=== PATIENT | female | born 1995 | race Caucasian/White ===

== ENCOUNTER 2024-03-19 00:44 | Outpatient (CLI) | payer BC, SELFPAY ==
[2024-03-19 01:03] VITALS: BP 134/85; PULSE 96; RESP 17; TEMP 36.6; O2SAT 100; BMI 39.6
[2024-03-19 01:17] VITALS: BMI 39.6
[2024-03-19 01:22] LABS: Microscopic, Urine URINE MICROSCOPIC (MICROSCOPIC)
[2024-03-19 01:24] LABS: Appearance,Urine CLEAR (Clear); Bilirubin,Urine Negative (Negative); Blood, Urine Negative (Negative); Color,Urine YELLOW (Yellow); Glucose,Urine (UA) Negative (Negative); Ketones,Urine Negative (Negative); Leukocyte Esterase,Urine Negative (Negative); Nitrate,Urine Negative (Negative); Protein,Urine Negative (Negative); Specific Gravity, Urine >= 1.030 (1.005-1.030); Urobilinogen,Urine 0.2 EU/dl (0.2)
[2024-03-19 01:51] LABS: Bacteria,Urine 2+ /lpf; Mucus,Urine 1+ /lpf
[2024-03-19] MEDS: CYCLOBENZAPRINE 10MG TABLET 5 MG PO (02:01)
[2024-03-19 02:03] LABS: Amphetamine/Metha Screen,Urine Negative ng/ml (<1000); Barbiturates Screen,Urine Negative ng/ml (<200)
[2024-03-19 02:04] LABS: Benzodiazepines Screen,Urine Negative ng/ml (<200)
[2024-03-19 02:06] LABS: Cannabinoid Screen,Urine Negative ng/ml (<50); Methadone Screen,Urine Negative ng/ml (<300)
[2024-03-19 02:07] LABS: Cocaine Screen,Urine Negative ng/ml (<300)
[2024-03-19 02:08] LABS: Opiate Screen,Urine Negative ng/ml (<300); Phencyclidine Screen,Urine Negative ng/ml (<25)
== END 2024-03-19 02:45 | disposition home or self-care (01) ==
LOC: OBOUT 00:49 → OB 00:49
PROVIDERS: Visit Provider Obstetrics & Gynecology
DX: O26.893 Other specified pregnancy related conditions, third trimester (principal); M54.50 Low back pain, unspecified; Z3A.28 28 weeks gestation of pregnancy; O23.43 Unspecified infection of urinary tract in pregnancy, third trimester; N39.0 Urinary tract infection, site not specified; B96.20 Unspecified Escherichia coli [E. coli] as the cause of diseases classified elsewhere
CPT/HCPCS: 80307; 81001; 87086; 87088; 87186; G0463

== ENCOUNTER 2024-11-30 07:18 | Emergency (ER) | payer MEDICAID, SELFPAY ==
--- OUTSIDE RECORDS SUMMARY | 2024-11-30 07:31 | XMS_ITS | Clinical Summary ---
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 Active promethazine (Phenergan) 12.5 MG tabletIndication s:Nausea and vomiting in Take 1 tablet (12.5 mg) by mouth every 4 (four) hours. 180 tablet 1 4 Active Additional Information Patient not taking.Reported on 07/08/2024 polyethylene glycol (Miralax) 17 GM/SCOOP powder Take 17 g by mouth 1 (one) time each day. 578 g 2 4 Active Additional Information Patient not taking.Reported on 07/08/2024 famotidine (Pepcid) 20 MG tabletIndication s:Gastroesophage al reflux disease without esophagitis Take 1 tablet (20 mg) by mouth 2 (two) times a day. 90 tablet 3 4 Active Additional Information Patient not taking.Reported on 07/08/2024 pantoprazole (Protonix) 40 MG EC tabletIndication s:35 weeks gestation of Take 1 tablet (40 mg) by mouth 1 (one) time each day before breakfast. Do not crush, chew, or split. 30 tablet 11 5 05/05/19 26 Active Additional Information Patient not taking.Reported on 07/08/2024 Active Problems Problem Noted Date Diagnosed Date Encounter for routine follow-up 06/25 Resolved Problems Problem Noted Date Diagnosed Date Resolved Date 37 weeks gestation of 05/13/2024 06/25/2024 35 weeks gestation of 05/05/2024 05/13/2024 Uterine size-date discrepanc y in third trimester 03/17/2024 05/20/2024 33 weeks gestation of 02/16/2024 05/05/2024 Gastroesophageal reflux dise ase without esophagitis 01/19/2024 02/16/2024 Urinary symptom or sign 12/12/2023 09/2 05/2023 20 weeks gestation of 11/24/2023 02/16/2024 state, incidental 10/03/2023 0 11/24/2023 Assessment & Plan (10/03/2023 5:07 PM EDT): - TVUS: intrauterine gestational sac measuring 5w2d with no pole or yolk sac identified, normal adnexa, no free fluid - LMP was before IUD was removed. Likely conception after IUD removed and US too early to see pole - continue vitmain - RTC 2 weeks for repeat US Immunizations Immunization Administration Dates Next Due Rho (D) Immune Globulin 03/17/2024 Tdap 03/17/2024 Family History Medical History Relation Name Comments Depression Mother Felicita Mock Diabetes Mother Felicita Mock Relation Name Status Comments Mother Felicita Mock Social History Tobacco Use Types Packs/Day Years Used Date Smoking Tobacco: Never Smokeless Tobacco: Never Tobacco Cessation:Counseling Given: Not Answered Alcohol Use Standard Drinks/Week Comments Never 0 (1 standard drink = 0.6 oz pur e alcohol) PHQ-2 Answer Date Recorded Patient Health Questionnaire-2 Score 0 07/08/2024 [place] Depression Scale Answer Date Recorded [place] Depression Scale Total 12 07/08/2024 The thought of harming myself has occurred to me . Never 07/08/2024 PHQ-9 Answer Date Recorded Patient Health Questionnaire-9 Score 0 06/25/2024 Comments No Sex and Gender Information Value Date Recorded Sex Assigned at Female 03/16/2024 12:07 PM EST Legal Sex Female 6:29 PM EDT Gender Identity Female 03/16/2024 12:06 PM EST Sexual Orientation Straight 03/16/2024 12 :06 PM EST Last Filed Vital Signs Vital Sign Reading Time Taken Comments Blood Pressure 122/84 07/08/2024 12:04 PM EDT Pulse 68 07/08/2024 12:04 PM EDT Temperature 36.8 C (98.2 F) 07/08/2024 12:04 PM EDT Respiratory Rate 14 07/08/2024 12:04 PM EDT Oxygen Saturation 97% 07/08/2024 12:04 PM EDT Inhaled Oxygen Concentration - - Weight 117 kg (258 lb 13.1 oz) 07/08/2024 12:04 PM EDT Height 170.2 cm (5' 7 ) 07/08/2024 12:04 PM EDT Body Mass Index 40.54 07/08/2024 12:04 PM EDT Plan of Treatment Health Maintenance Due Date Last Done Comments [facility]-/Child/Adol SDOH Screenings 1996 [facility]-Hepatitis B Vaccines (2 of 3 - 3-dose series) 06/16/1997 05/19/1997 [facility]-IPV Vaccines (3 of 3 - 4-dose series) 2000 08/23/1997, 1996 [facility]-Varicella Vaccines (2 of 2 - 2-dose childhood series) 2000 08/23/1997 [facility]- SDOH Screenings 2014 [facility]-Adult SDOH Screenings 2014 [facility]-Pap Smear 2017 HPV Vaccines (1 - 3-dose SCDM series) 08/16/2023 [id number] Vaccine ( season) 2023 [facility]-Influenza Vaccine (#1) 2024 06/11/2018 [facility]-Depression Screening 07/08/2025 025, 07/08/2024, 06/25/2024 [facility]-DTaP,Tdap,and Td Vaccines (5 - Td or Tdap) 03/17/2034 03/17/2024, 11/21/1997, 02/17/1997, Additional history exists [facility]-Zoster Vaccines (1 of 2) 2046 08/23/1997 [facility]-HIB Vaccines Completed 11/21/1997, , 1996 [facility]-Hepatitis A Vaccines Aged Out 05/06/2018 No longer eligible based on patient's age to complete this topic [facility]-HIV Screening Completed 10/17/2023 [facility]-Hepatitis C Screening Completed 10/17/2023 [facility]-Obesity Intervention Completed 025, 06/25/2024, 05/27/2024, Additional history exists [facility]-Pneumococcal Vaccine: Pediatrics (0 to 5 Years) and At-Risk Patients (6 to 49 Years) Aged Out No longer eligible based on patient's age to complete this topic [facility]-Rotavirus Vaccines Aged Out No lo nger eligible based on patient's age to complete this topic Procedures Procedure Name Priority Date/Time Associated Diagnosis Comments HEPATITIS C ANTIBODY W/REFLEX TO HCV QUANT PCR Routine 10/17/2023 11:13 AM EDT state, incidental HIV 1/2 ANTIBODY/ANTIGEN SCREEN WITH REFLEX TO HIV I/II DIFFERENTIATION Routine 10/17/2023 11:13 AM EDT state, incidental from Last 3 Months or Most Recently Relevant to Health Maintenance Results * HIV 1 & 2 Antibody/Antigen Screen (10/17/2023 11:13 AM EDT) HIV 1 & 2 Antibody/Antigen Screen Non Reactive Non Reactive 10/17/2023 2:16 PM EDT [facility] Comment:Screening for HIV 1 & 2 antibodies, and P24 antigen is NONREACTIVE. No confirmatory testing is required. Blood Venous blood specimen / Unknown Venipuncture / Unknown 10/17/2023 11:13 AM EDT 10/17/2023 1:10 PM EDT us Milagros Whyte MD LAB BLOOD ORDERABLES Fin al Result [facility] [address] [place] [address] * Hepatitis C Antibody w/Reflex to HCV Quant PCR (10/17/2023 11:13 AM EDT) Hepatitis C Antibody Negative Negative 10/17/2023 2:16 PM EDT [facility] Blood Venous blood specimen / Unknown Venipuncture / Unknown 10/17/2023 11:13 AM EDT 10/17/2023 1:10 PM EDT us Milagros Whyte MD LAB BLOOD ORDERABLES Fin al Result [facility] [address] [place] [address] from Last 3 Months or Most Recently Relevant to Health Maintenance Insurance [facility] [employer] [facility] MEDICAID Care Teams Coiled Tubing Operator Relationship Specialty Start Date End Date Pcp, Liz [address] [place] [address] PCP - General Family Medicine 10/03/23
[2024-11-30 07:34] VITALS: BP 125/87; PULSE 82; RESP 20; TEMP 36.9; O2SAT 98; BMI 35.2
--- NOTE | 2024-11-30 07:35 | HMH.EDGENADL ---
Discharge Plan Disposition Patient Disposition: Home, Self-Care Prescriptions Prescriptions: New pazdibvrhvdxdxk-haeyazted-MY 2-30-10 mg/5 mL syrup 5 ml PO Q6H PRN (Reason: cold symptoms) 7 Days Qty: 118 0RF ondansetron 4 mg tablet,disintegrating 4 mg PO Q6H PRN (Reason: nausea and vomiting) 5 Days Qty: 20 0RF No Action nitrofurantoin monohyd/m-cryst [Macrobid] 100 mg capsule 100 mg PO BID 5 Days Qty: 10 0RF Rx Instructions: must administer with a meal/food Referrals Follow up/Referrals: Provider,Referral, MD [Primary Care Provider, Medical] - See instructions Activity Restrictions/Add. Instructions Additional Instructions/Restrictions: Your symptoms are consistent with a viral syndrome secondary to COVID-19. Treatment is supportive take Tylenol ibuprofen the cough medicine nausea medicine drink plenty of fluids and rest. Clinical Impressions Clinical Impression: COVID-19, Viral syndrome Stand Alone Forms Stand Alone Forms: Work/School Release Print Language Print Language: Kiswahili Discharge ED Provider: Tripp Oneal General Adult HPI General Chief complaint: Upper Respiratory Infection Stated complaint: headache, sore throat, vomiting, & dizziness Time Seen by Provider: 11/30/24 07:29 History of Present Illness HPI narrative: Patient is a 29-year-old female present today with multiple complaints. She has had 3 days of intermittent headache nausea and vomiting associated with a sore throat and now cough today. Denies any fevers or chills. She did wake up 1 night with night sweats. No focal neurologic symptoms no sudden thunderclap component of the headache. Related Data Previous Rx's ?Medication ?Instructions ?Recorded nitrofurantoin 100 mg PO BID 5 days #10 caps 03/22/24 monohydrate/macrocrystals 100 mg capsule (Macrobid) gdtzkcgygvflabv-iafslojxenodxyo-FV 5 ml PO Q6H PRN cold symptoms 7 11/30/24 2 mg-30 mg-10 mg/5 mL oral syrup days #118 mL ondansetron 4 mg disintegrating 4 mg PO Q6H PRN nausea and 11/30/24 tablet vomiting 5 days #20 tabs Allergies Allergy/AdvReac Type Severity Reaction Status Date / Time No Known Allergies Allergy Unverified 03/18/17 15:01 PFSH PFSH Disclaimer: The information contained in this section may have been updated after the patient was seen, as this information can be updated by other users. Social History Smoking Status: Current every day smoker alcohol intake: never current occupational status: unemployed Travel in the last 8 weeks?: None Other Medical History Have you received the Flu Vaccine for this season: No Have you received the Pneumonia Vaccine: No ROS Obtained: Yes All systems reviewed & no additional complaints except as documented Physical Exam General General appearance: alert and in no apparent distress ENT ENT exam: Present normal oropharynx Respiratory Respiratory exam: Present normal lung sounds bilaterally; Absent respiratory distress Cardiovascular Cardiovascular exam: Present regular rate and normal rhythm Neurological Exam Neurological exam: Present alert, oriented X3, CN II-XII intact and normal gait; Absent motor sensory deficit Medical Decision Making Medical Records Screening: Per USPSTF and CDC recommendations, given the prevalence of disease in our region, it is our hospital?s policy to screen for HIV and viral Hepatitis for all patients aged 18 and over and those with ongoing risk factors. Ezra Inquiry Pt receiving controlled substance: No Vital Signs: 11/30/24 07:34 11/30/24 08:00 11/30/24 08:30 Temperature 98.4 F Temperature Source Oral Pulse Rate 80 61 Pulse Rate [Left Radial] 82 Respiratory Rate 20 Blood Pressure 109/77 L 125/87 Blood Pressure [Right Arm] 125/87 Blood Pressure Mean [Right Arm] 99 02 Sat by Pulse Oximetry 98 98 100 Oxygen Delivery Method Room Air Lab Data Lab results reviewed: Yes I reviewed the patient's lab results. Lab Results 11/30/24 07:30: SARS-CoV-2 (PCR) Detected A, Influenza A Untype (PCR) Not detected, Influenza Type B (PCR) Not detected Orders (Tests/Meds): ED MEDICATIONS Discontinued Medications Generic Name Dose Route Start Last Admin Trade Name Freq PRN Reason Stop Dose Admin Acetaminophen 1,000 mg 11/30/24 07:34 11/30/24 07:50 Acetaminophen 1,000mg/100ml Vial IV 11/30/24 07:35 1,000 mg ONCE ONE Administration Diphenhydramine HCl 25 mg 11/30/24 07:34 11/30/24 07:50 Diphenhydramine 50mg/Ml Vial IV 11/30/24 07:35 25 mg ONCE ONE Administration Prochlorperazine Edisylate 10 mg 11/30/24 07:34 11/30/24 07:51 Prochlorperazine 10mg/2ml Vial IV 11/30/24 07:35 10 mg ONCE ONE Administration ORDERS Category Date Time Status Rapid PCR Covid and Flu A/B Stat Lab 11/30/24 07:30 Completed Medical Decision Narrative: Very well-appearing 29-year-old GCS of 15 normal neurologic exam presents today with cough headache nausea and vomiting sore throat this is consistent with a viral syndrome. Will swab her for COVID and flu. She is primarily here for her headache I am not concerned about subarachnoid hemorrhage meningitis etc. Will give her IV fluids Tylenol Compazine Benadryl she had ibuprofen earlier this morning. Will reassess after this. 8:40 AM reassessment patient feeling much better serial exams are benign she is positive for COVID-19 symptoms are consistent with viral syndrome secondary to this virus. Supportive care will be indicated no indication for Paxlovid at [facility]. Prescription sent to her pharmacy return precautions emphasized patient discharged in stable condition. Critical Care Critical Care Time Critical Care Time: No
[2024-11-30 07:38] LABS: Influenza A, PCR Not Detected (NotDetected); Influenza B, PCR Not Detected (NotDetected)
[2024-11-30] MEDS: ACETAMINOPHEN 1,000MG/100ML VIAL 1000 MG IV (07:50)
[2024-11-30] MEDS: PROCHLORPERAZINE 10MG/2ML VIAL 10 MG IV (07:51)
[2024-11-30 08:00] VITALS: BP 109/77; PULSE 80; O2SAT 98
[2024-11-30 08:29] LABS: Coronavirus 19, PCR Detected (NotDetected)
[2024-11-30 08:30] VITALS: BP 125/87; PULSE 61; O2SAT 100
[2024-11-30 08:41] VITALS: BP 125/87; PULSE 60; RESP 20; TEMP 36.7; O2SAT 98
== END 2024-11-30 08:48 | disposition home or self-care (01) ==
PROVIDERS: Emergency Provider Student in an Organized Health Care Education/Training Program
DX: U07.1 COVID-19 (principal); B34.9 Viral infection, unspecified
CPT/HCPCS: 87636; 96374; 96375; 99283; 99284; J0131; J0780; J1200